=== PATIENT | female | born 1990 | race Caucasian/White ===

== ENCOUNTER 2019-12-22 14:17 | Inpatient (IN) | payer OTHER ==
[~2019-12-22] VITALS: Ht 157.5 cm; Wt 79.4 kg
[2019-12-22] MEDS ORDERED: LR 1,000 ML IV SCH (15:14)
[2019-12-22] MEDS ORDERED: hydrALAZINE HCL 10 MG TABLET PO ONE (15:15)
[2019-12-22 15:50] LABS: BILIRUBIN,URINE NEGATIVE (NEGATIVE); BLOOD, URINE NEGATIVE (NEGATIVE); COLOR,URINE YELLOW (YELLOW); GLUCOSE,URINE NEGATIVE (NEGATIVE); KETONES,URINE NEGATIVE (NEGATIVE); LEUKOCYTE ESTERASE ,URINE NEGATIVE (NEGATIVE); NITRITE, URINE NEGATIVE (NEGATIVE); PROTEIN URINE 3+ (NEGATIVE); UROBILINOGEN,URINE 0.2 (0.2-1.0)
[2019-12-22 15:53] LABS: CLARITY/URINE HAZY (CLEAR)
[2019-12-22 15:55] LABS: BACTERIA,URINE FEW /HPF (None Seen); WBC,URINE 0-3 /HPF (0-3)
[2019-12-22 16:25] LABS: BASOPHILS # (AUTO) 0.1 K/uL (0.0-0.2); BASOPHILS % (AUTO) 0.5 % (0.0-2.0); EOSINOPHILS # (AUTO) 0.1 K/uL (0.0-0.4); EOSINOPHILS % (AUTO) 1.2 % (0.0-4.0); HEMOGLOBIN 13.9 g/dL (12.0-16.0); LYMPHOCYTES # (AUTO) 2.6 K/uL (1.0-5.5); LYMPHOCYTES % (AUTO) 22.5 % (20.5-51.5); MEAN CORPUSCULAR HEMOGLOBIN 32 pg (27-31); MEAN CORPUSCULAR HGB CONC 35 % (32-36); MEAN CORPUSCULAR VOLUME 93 fL (79.0-98.0); MONOCYTES # (AUTO) 0.8 K/uL (0.0-1.0); MONOCYTES % (AUTO) 7.1 % (1.7-9.3); NEUTROPHILS # (AUTO) 7.9 K/uL (1.8-7.7); NEUTROPHILS % (AUTO) 68.7 % (40.0-70.0); PLATELET COUNT (AUTO) 249 K/uL (130-430); RED BLOOD CELL COUNT(AUTO) 4.29 MIL/uL (4.2-6.2); RED CELL DISTRIBUTION WIDTH 13.2 % (9.0-15.0); WHITE BLOOD COUNT (AUTO) 11.6 K/uL (4.8-10.8)
[2019-12-22 16:38] LABS: POTASSIUM 4.5 mmol/L (3.5-5.1)
[2019-12-22 16:39] LABS: CALCIUM 8.5 mg/dL (8.4-11.0); CREATININE 0.7 mg/dL (0.55-1.30)
[2019-12-22 16:42] LABS: INR 0.9 (0.8-1.2); PROTHROMBIN TIME 8.9 SECS (9.5-12.5)
[2019-12-22 16:44] LABS: ALBUMIN 2.7 g/dL (3.4-4.8); TOTAL BILIRUBIN 0.1 mg/dL (0.0-1.0); URIC ACID 6.4 mg/dL (2.4-7.0)
[2019-12-22] MEDS ORDERED: LORazepam 2 MG/ML VIAL IVP ONE (17:00)
[2019-12-22] MEDS ORDERED: hydrALAZINE HCL 20 MG/ML VIAL IVP ONE ×2 (17:00→18:00)
[2019-12-22] MEDS ORDERED: hydrALAZINE HCL 20 MG/ML VIAL ONE (17:27)
[2019-12-22] MEDS ORDERED: hydrALAZINE HCL 10 MG TABLET PO SCH (18:00)
[2019-12-22] MEDS ORDERED: METHYLDOPA 250 MG TABLET (ALDOMET) PO SCH (18:00)
[2019-12-22] MEDS ORDERED: TEMAZEPAM 15 MG CAPSULE PO PRN (19:45)
[2019-12-22] MEDS: hydrALAZINE HCL 10 MG TABLET PO SCH (21:00)
[2019-12-22] MEDS: ASPIRIN 81 MG TAB.CHEW PO SCH (21:00)
[2019-12-23] MEDS: METHYLDOPA 250 MG TABLET (ALDOMET) PO SCH ×5 (00:08→18:06)
[2019-12-23] MEDS: hydrALAZINE HCL 10 MG TABLET PO SCH (03:00)
[2019-12-23] MEDS ORDERED: METHYLDOPA 250 MG TABLET (ALDOMET) ONE (05:46)
[2019-12-23] MEDS ORDERED: hydrALAZINE HCL 25 MG TABLET PO ONE (08:40)
[2019-12-23] MEDS: hydrALAZINE HCL 25 MG TABLET PO SCH ×3 (09:00→21:00)
[2019-12-23] MEDS ORDERED: hydrALAZINE HCL 25 MG TABLET PO SCH (12:00)
[2019-12-23] MEDS ORDERED: ACETAMINOPHEN 325 MG TABLET PO PRN (12:15)
[2019-12-23 16:58] LABS: CREATININE 0.7 mg/dL (0.55-1.30)
[2019-12-23] MEDS ORDERED: MAGNESIUM SULFATE IN WATER 100 ML IV ONE (17:45)
[2019-12-23] MEDS: MAGNESIUM SULFATE IN WATER 500 ML IV PRN (18:29)
[2019-12-23] MEDS ORDERED: BETAMET ACET/BETAMET NA PH 30 MG/5 ML VIAL IM ONE (18:30)
[2019-12-23] MEDS: ASPIRIN 81 MG TAB.CHEW PO SCH (21:00)
[2019-12-23] MEDS ORDERED: ASPIRIN 81 MG TAB.CHEW ONE (21:42)
[2019-12-24] MEDS: hydrALAZINE HCL 25 MG TABLET PO SCH ×4 (03:00→21:10)
[2019-12-24] MEDS ORDERED: METHYLDOPA 250 MG TABLET (ALDOMET) ONE (03:16)
[2019-12-24] MEDS: MAGNESIUM SULFATE IN WATER 500 ML IV PRN ×2 (03:35→13:05)
[2019-12-24] MEDS: METHYLDOPA 250 MG TABLET (ALDOMET) PO SCH ×4 (05:32→17:57)
[2019-12-24] MEDS: ASPIRIN 81 MG TAB.CHEW PO SCH ×2 (09:51→21:00)
[2019-12-24 16:56] LABS: CREATININE CLEARANCE,URINE 106.7 ml/min (80-120); CREATININE,URINE 72.2 MG/DL (30-125); TPROTEIN U,24HR 2084.8 mg/24HR (0-130)
[2019-12-24] MEDS ORDERED: BETAMET ACET/BETAMET NA PH 30 MG/5 ML VIAL IM ONE (18:00)
[2019-12-25] MEDS: METHYLDOPA 250 MG TABLET (ALDOMET) PO SCH ×4 (00:10→17:49)
[2019-12-25] MEDS: MAGNESIUM SULFATE IN WATER 500 ML IV PRN ×2 (00:24→09:20)
[2019-12-25] MEDS ORDERED: METHYLDOPA 250 MG TABLET (ALDOMET) ONE (03:00)
[2019-12-25] MEDS: hydrALAZINE HCL 25 MG TABLET PO SCH ×4 (03:10→20:09)
[2019-12-25] MEDS: PRENATAL VITS W-CA,FE,FA(<1MG) (PRENATAL) TABLET PO SCH (09:17)
[2019-12-25] MEDS: ASPIRIN 81 MG TAB.CHEW PO SCH ×2 (09:18→20:08)
[2019-12-25 10:35] LABS: BASOPHILS % (AUTO) 0.1 % (0.0-2.0); HEMATOCRIT 36.4 % (36-48); HEMOGLOBIN 12.5 g/dL (12.0-16.0); LYMPHOCYTES # (AUTO) 1.4 K/uL (1.0-5.5); LYMPHOCYTES % (AUTO) 11.3 % (20.5-51.5); MEAN CORPUSCULAR HEMOGLOBIN 33 pg (27-31); MEAN CORPUSCULAR HGB CONC 34 % (32-36); MEAN CORPUSCULAR VOLUME 95 fL (79.0-98.0); MONOCYTES # (AUTO) 0.7 K/uL (0.0-1.0); MONOCYTES % (AUTO) 5.3 % (1.7-9.3); NEUTROPHILS # (AUTO) 10.6 K/uL (1.8-7.7); NEUTROPHILS % (AUTO) 83.3 % (40.0-70.0); PLATELET COUNT (AUTO) 240 K/uL (130-430); RED BLOOD CELL COUNT(AUTO) 3.83 MIL/uL (4.2-6.2); RED CELL DISTRIBUTION WIDTH 13.2 % (9.0-15.0); WHITE BLOOD COUNT (AUTO) 12.7 K/uL (4.8-10.8)
[2019-12-25 10:55] LABS: CREATININE 0.76 mg/dL (0.55-1.30); POTASSIUM 3.8 mmol/L (3.5-5.1)
[2019-12-25 11:01] LABS: ALBUMIN 2.5 g/dL (3.4-4.8); TOTAL BILIRUBIN 0.1 mg/dL (0.0-1.0)
[2019-12-25 11:09] LABS: CALCIUM 6.9 mg/dL (8.4-11.0)
[2019-12-26] MEDS: hydrALAZINE HCL 25 MG TABLET PO SCH ×2 (02:44→08:58)
[2019-12-26] MEDS: METHYLDOPA 250 MG TABLET (ALDOMET) PO SCH (05:19)
[2019-12-26] MEDS ORDERED: hydrALAZINE HCL 20 MG/ML VIAL IVP ONE (07:45)
[2019-12-26] MEDS: PRENATAL VITS W-CA,FE,FA(<1MG) (PRENATAL) TABLET PO SCH (08:57)
[2019-12-26] MEDS: ASPIRIN 81 MG TAB.CHEW PO SCH (08:57)
[2019-12-26] MEDS ORDERED: ceFAZolin SODIUM 2 GM in D5W 100 ML IV ONE (10:15)
[2019-12-26] MEDS ORDERED: CEFAZOLIN 2 GM IVPB PREMIX 50 ML IV ONE (10:30)
[2019-12-27 09:12] LABS: TPROTEIN U,24HR 2658.8 mg/24HR (0-130)
[2019-12-27 09:15] LABS: CREATININE,URINE 31.4 MG/DL (30-125)
== END 2019-12-26 11:50 | disposition short-term general hospital (02) | DRG 832 ==
LOC: SPU 14:17 → OBSVTOIN 14:17 → SPU 21:00
PROVIDERS: ADMIT Specialist; ATTEND Specialist
DX: O14.93 Unspecified pre-eclampsia, third trimester (principal); O41.03X0 Oligohydramnios, third trimester, not applicable or unspecified; O36.5930 Maternal care for other known or suspected poor fetal growth, third trimester, not applicable or unspecified; O13.3 Gestational [pregnancy-induced] hypertension without significant proteinuria, third trimester; O34.219 Maternal care for unspecified type scar from previous cesarean delivery; O32.2XX0 Maternal care for transverse and oblique lie, not applicable or unspecified; Z3A.29 29 weeks gestation of pregnancy
CPT/HCPCS: 36415; 76815; 80053; 81000-TC; 82570; 82575-TC; 83735-TC; 84156; 84550-TC; 85025; 85384-TC; 85610-TC; 85730-TC; 94760; J0360; J0690; J0702; J2060; J3475; J7060; J7120